=== PATIENT | male | born 1970 | race Caucasian/White ===

== ENCOUNTER 2016-07-18 11:07 | Emergency (ER) | payer OTHER ==
[2016-07-18] MEDS ORDERED: ANTIVERT PO ONE (11:36)
[2016-07-18] MEDS ORDERED: REGLAN IV ONE (11:36)
[2016-07-18] MEDS ORDERED: NS 1,000 ML IV ONE (11:36)
--- NOTE | 2016-07-18 11:50 | PROVIDER DOCUMENTATION ---
HPI-General Adult - General Chief Complaint: Dizziness Stated Complaint: DIZZINESS Time Seen by Provider: 07/18/16 11:21 Source: patient Allergies/Adverse Reactions: Patient Allergies Allergy/AdvReac Type Severity Reaction Status Date / Time No Known Allergies Allergy Verified 07/18/16 12:16 Home Medications: Alprazolam [Xanax] 0.5 mg PO QHS 07/18/16 Atenolol 25 mg PO HS 07/18/16 Hydrocodone/Acetaminophen [[place] 5-325 Tablet] 1 each PO Q6H PRN PRN 07/18/16 - History of Present Illness -Gen Adult Nature of Presenting Problems: 45 y/o WM c hx of fibromyalgia and dysautonomia, c/o dizziness over the past two days that has gotten progressively worse. States that he has been feeling like he is going slower than the environment around him and feels like he will pass out when he is standing. Did not get much sleep last night because when he moves the dizziness is affected also, but much worse with standing. Denies nausea or vomiting, changes in vision or blurry vision, or recent illness. 2 days ago he felt like he heard water rushing in the left ear, which has continued. Denies trauma to the ear. Denies headache or tinnitus. Due to the dysautonomia, he is dizzy most of the time, but this is different. Went to the urgent care before coming here. Review of Systems - Adult - REVIEW OF SYSTEMS - ADULT Constitutional: reports: no symptoms reported. denies: chills, fever, fatique Eyes: reports: no symptoms reported. denies: decreased vision, blurred vision, double vision, eye pain Ears, Nose, Mouth & Throat: reports: see HPI. denies: ear pain, hearing loss, tinnitus, nose pain, throat swelling Cardiovascular: reports: no symptoms reported. denies: chest pain, irregular heart rate, palpitations Respiratory: reports: no symptoms reported. denies: cough, shortness of breath , wheezing Gastrointestinal: reports: see HPI, nausea. denies: abdominal pain, diarrhea, vomiting Genitourinary: reports: no symptoms reported. denies: dysuria, discharge, frequency, incontinence Musculoskeletal: reports: no symptoms reported. denies: bone pain, back pain, muscle aches Integumentary: reports: no symptoms reported. denies: rash Neurological: reports: see HPI, dizziness/vertigo, loss of balance. denies: ataxia, headache/migraines, numbness, paresthesia, slurred speech Psychiatric: reports: no symptoms reported Endocrine: reports: no symptoms reported Hematologic/Lymphatic: reports: no symptoms reported Allergic/Immunologic: reports: no symptoms reported All Other Systems: Reviewed and Negative Physical Exam-General - PHYSICAL EXAM-ADULT Initial Vital Signs Reviewed: Yes - CONSTITUTIONAL General Appearance: appears well, alert, no apparent distress - EYES Eyes: PERRL/EOMI, pink conjunctivae - HEAD, EARS, NOSE, MOUTH & THROAT HENMT: normocephalic/atraumatic, moist mucous membranes, normal ENT inspection, TMs normal, pharynx normal. negative: pharyngeal erythema, tonsillar exudate, TM abnormal - NECK Neck: non-tender, full range of motion, supple, normal inspection. negative: lymphadenopathy - RESPIRATORY Respiratory: chest non-tender, lungs clear, normal breath sounds, no pleuratic chest pain, no respiratory distress, no accessory muscle use. negative: respiratory distress, decreased breath sounds, accessory muscle use, crackles, rales, rhonchi, wheezing - CARDIOVASCULAR Cardiovascular: normal peripheral pulses, regular rate, rhythm, no edema, no gallop, no murmur - GASTROINTESTINAL (ABDOMEN) Abdominal Exam: normal bowel sounds, non tender, soft, no organomegaly, no pulsatile mass. negative: abdominal bruit, abnormal bowel sounds, distended, guarding, rigid, rebound, tenderness - LYMPHATIC Lymphatic: no adenopathy - MUSCULOSKELETAL Extremity: normal range of motion, non-tender, normal inspection, other ( patient becomes dizzy and feels like he will pass out just sitting on the side of the bed. 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, no motor/sensory deficits, negative romberg's sign - PSYCHIATRIC Psych/Mental Status: normal mood/affect, normal thought content, normal thought process, oriented x 3 Progress - PLAN OF CARE/RESULTS Progress/Plan/Lab Results: Vital Signs Temp Pulse Pulse Pulse Pulse Resp BP 07/18/16 12:19 77 84 73 07/18/16 11:15 97.3 F L 77 20 145/97 BP BP BP Pulse Ox 07/18/16 12:19 136/83 131/93 140/90 07/18/16 11:15 99 No Known Allergies Allergy (Verified 07/18/16 12:16) Alprazolam [Xanax] 0.5 mg PO QHS 07/18/16 Atenolol 25 mg PO HS 07/18/16 Hydrocodone/Acetaminophen [[place] 5-325 Tablet] 1 each PO Q6H PRN PRN 07/18/16 Laboratory 07/18/16 07/18/16 07/18/16 11:50 11:50 11:50 WBC 6.08 RBC 5.87 Hgb 16.4 Hct 48.0 MCV 81.8 MCH 27.9 MCHC 34.2 RDW Std Deviation 13.7 Plt Count 284 MPV 10.0 Immature Gran % (Auto) 0.0 Neut % (Auto) 60.6 Lymph % (Auto) 28.8 [place] % (Auto) 8.1 Eos % (Auto) 2.0 Baso % (Auto) 0.5 Immature Gran # (Auto) 0.00 Neut # (Auto) 3.69 Lymph # (Auto) 1.75 [place] # (Auto) 0.49 Eos # (Auto) 0.12 Baso # (Auto) 0.03 Sodium 139 Potassium 4.2 Chloride 99 Carbon Dioxide 24 L Anion Gap 16 BUN 14 Creatinine 1.2 Estimated GFR/1.73 m2 > 60 BUN/Creatinine Ratio 12 Glucose 113 H Calculated Osmolality 279 Calcium 11.1 H Total Bilirubin 0.49 AST 30 ALT 54 H Alkaline Phosphatase 60 Total Protein 8.0 Albumin 4.8 Globulin 3.2 Albumin/Globulin Ratio 1.5 Urine Source CLEAN CATCH Urine Color YELLOW Urine Turbidity CLEAR Urine pH 6.5 Ur Specific [place] 1.017 Urine Protein NEGATIVE Ur Glucose (Stick) NEGATIVE Ur Ketones (Stick) NEGATIVE Urine Blood NEGATIVE Urine Nitrite NEGATIVE Urine Bilirubin NEGATIVE Urobilinogen Dipstick NORMAL Urine Leukocytes NEGATIVE Urine WBC (Auto) <10 Urine RBC (Auto) <10 U Epithel Cells (Auto) <10 Urine Bacteria (Auto) NEGATIVE Orders Category Date Time Status ED: Orthostatic Vital Signs (E as directed Care 07/18/16 11:37 Active Saline Loc NOW Care 07/18/16 11:36 Active Saline Loc NOW Care 07/18/16 11:36 Active CBC WITH ELECTRONIC DIFF [HEME] Stat Lab 07/18/16 12:57 Completed COMPREHENSIVE METABOLIC PANEL [CHEM] Stat Lab 07/18/16 11:50 Completed UA Reflex [URINALYSIS W/POSS RFLX CULT] [URINALYSIS] Lab 07/18/16 12:57 Completed Stat 0.9% Sodium Chloride Inj [Ns] 1,000 ml Med 07/18/16 11:36 Discontinued IV 999 mls/hr Meclizine [Antivert] Med 07/18/16 11:36 Discontinued 12.5 mg PO NOW ONE Metoclopramide [Reglan] Med 07/18/16 11:36 Discontinued 5 mg IV NOW ONE EKG [EKG] Stat Ther 07/18/16 11:36 Ordered Departure - Departure Time of Disposition Order: 13:26 DIAGNOSIS: Vertigo Disposition: HOME 01 Certified Medical Emergency: Emergent Condition: Stable Additional Instructions: Follow up with your primary care physician ED Follow Up Instructions: You have been treated by a care provider in the Emergency Department. These instructions are being provided to you so you can have an understanding of how to care for yourself upon discharge. Upon discharge from the Emergency Department, you are responsible for making arrangements for follow-up care by a physician of your choice. Take all prescribed medications as directed. Return to the Emergency Department immediately for any new or worsening symptoms. You may call the Physician Referral phone number at [phone] to obtain a list of Physicians who are taking new patients. Prescriptions: Meclizine [Antivert] 12.5 mg PO TID #30 tablet Ondansetron Odt [Zofran 8Mg Odt] 8 mg PO Q8H PRN PRN #20 tablet PRN Reason: Nausea Attestation - Physician/ Mid-level Attestation Patient care was provided by Mid-level provider (MANAGER GROUP/PA):: Yes Mid-level provider:: Renate Ocampo Mid-level documentation review:: The Mid-level provider documentation, treatment plan and medical decision making was reviewed by the physician who agrees with all treatment and medical decision making by the MLP.
[2016-07-18 12:49] LABS: MANUAL DIFF NEEDED? NO; URINE CULTURE NEEDED? NO; URINE MICRO REVIEW NEEDED? NO; URINE SOURCE CLEAN CATCH
[2016-07-18 12:55] LABS: BILIRUBIN URINE NEGATIVE (NEGATIVE); BLOOD URINE NEGATIVE (NEGATIVE); COLOR YELLOW; GLUCOSE URINE NEGATIVE (NEGATIVE); LEUKOCYTES URINE NEGATIVE (NEGATIVE); NITRITE URINE NEGATIVE (NEGATIVE); PH URINE 6.5; PROTEIN URINE NEGATIVE (NEGATIVE); SP GRAVITY URINE 1.017; TURBIDITY URINE CLEAR (CLEAR); UR EPITHELIAL CELLS <10 /HPF (<10); URINE BACTERIA NEGATIVE /HPF; URINE RBC <10 /HPF (<10); URINE WBC <10 /HPF (<10); UROBILINOGEN URINE NORMAL (NORMAL)
[2016-07-18 12:56] LABS: BASO% 0.5 % (0.0-0.8); EOS# 0.12 X1000 (0.0-0.7); HEMOGLOBIN 16.4 g/dL (14.0-18.0); LYMPH# 1.75 X1000 (1.2-3.4); LYMPH% 28.8 % (20.5-51.1); MCH 27.9 PG (27-31); MCHC 34.2 g/dL (33-37); MCV 81.8 FL (81-99); MONO# 0.49 X1000 (0.11-0.59); MONO% 8.1 % (1.7-9.3); NEUT% 60.6 % (42.2-75.2); PLT 284 X1000 (130-400); RBC 5.87 XMIL (4.7-6.1)
[2016-07-18 13:24] LABS: AGAP 16; ALBUMIN 4.8 g/dL (3.5-5.0); ALKALINE PHOSPHATASE 60 U/L (32-122); BUN 14 mg/dL (8-22); CALCIUM 11.1 mg/dL (8.8-10.2); CHLORIDE 99 mmol/L (98-107); COSMO 279; GOT 30 U/L (10-34); GPT 54 U/L (10-44); POTASSIUM 4.2 mmol/L (3.5-5.1); SODIUM 139 mmol/L (136-145); TCO2 24 mmol/L (25-35); TOTAL BILIRUBIN 0.49 mg/dL (0.20-1.00)
[2016-07-18 14:03] VITALS: BP 138/77
--- NOTE | 2016-07-18 14:10 | EKG Report ---
Test Performed on : 07/18/2016 12:13:52 PM Test Reason : CP Blood Pressure : / mmHG Vent. Rate : 073 BPM Atrial Rate : 073 BPM P-R Int : 174 ms QRS Dur : 090 ms QT Int : 392 ms P-R-T Axes : 068 012 021 degrees QTc Int : 431 ms Normal sinus rhythm. Minimal voltage criteria for LVH, may be normal variant Borderline ECG No previous ECGs available Unconfirmed Result
== END 2016-07-18 13:50 | disposition home or self-care (01) ==
LOC: ED 11:07
DX: R42 Dizziness and giddiness (principal); M79.7 Fibromyalgia; Z79.899 Other long term (current) drug therapy
CPT/HCPCS: 80053; 81001; 82948; 85025; 93005; 96361; 96374; J2765; J7030